=== PATIENT | female | born 1950 | race Caucasian/White ===

== ENCOUNTER 2016-11-19 21:27 | Emergency (ER) | payer MEDICARE, OTHER ==
[~2016-11-19] VITALS: Ht 157.5 cm; Wt 50.0 kg
[2016-11-19 22:04] LABS: HEMATOCRIT 45.3 % (34.6-47.8); HEMOGLOBIN 15.4 g/dL (11.7-16.4); WHITE BLOOD COUNT 9.1 x10^3/uL (3.4-10)
[2016-11-19 22:12] LABS: BLOOD UREA NITROGEN 13 mg/dL (7-18)
[2016-11-19 23:42] VITALS: BP 143/98
== END 2016-11-19 23:44 | disposition home or self-care (01) ==
LOC: ED 23:12
DX: F10.120 Alcohol abuse with intoxication, uncomplicated (principal); Z04.1 Encounter for examination and observation following transport accident
CPT/HCPCS: 36415; 80048; 80307; 82040; 82962; 85025; 99284